=== PATIENT | male | born 1950 | race Hispanic/Latino ===

== ENCOUNTER 2016-11-10 04:26 | Emergency (ER) | payer MEDICARE ==
[2016-11-10] MEDS ORDERED: D5W IV ONE ×2 (04:30→04:32)
[2016-11-10] MEDS ORDERED: ATROPINE 0.1% (CARDIAC) ONE (04:30)
[2016-11-10] MEDS ORDERED: ADRENALIN ONE (04:30)
[2016-11-10] MEDS ORDERED: INTROPIN DRIP 800 MG/D5W 250 ML IV ONE (04:30)
[2016-11-10] MEDS ORDERED: SODIUM BICARBONATE IV ONE (04:30)
[2016-11-10] MEDS ORDERED: [UNRECOGNIZED DRUG - OTHER] IV ONE (04:32)
[2016-11-10 04:56] LABS: Urine Drugs of Abuse Note Disclamer
--- NOTE | 2016-11-10 05:03 | Emergency Department Report ---
HPI - General Time Seen by Provider: 11/10/16 04:37 - HPI HPI: Room 20 The patient is a 65-year-old male brought in by EMS with a chief complaint cardiac arrest. The patient is reportedly a resident at [facility] and had a last normal time in 03:00. EMS states staff at the skilled nursing. The patient unresponsive and initiated CPR at 03:45. EMS arrived on scene at 03 :51 and the patient in asystole. CPR was continued the patient was intubated administered 3 epinephrines and one sodium bicarbonate. EMS states they had return of spontaneous circulation for approximately 2 minutes within the patient again went into asystole prior to arrival. In the ED ACLS protocols were continued with return of spontaneous circulation for approximately 15 minutes then reentered PEA/idioventricular rhythm. This rhythm was recalcitrant to ACLS Location: Cardiovascular system Duration: [see above] Quality: Cardiac arrest Severity: Severe Modifying factors: [see above] Context: [see above] Mode of transportation: EMS ED Past Medical Hx - Past Medical History Hx Hypertension: Yes Hx CVA: Yes (left sided deficits) Hx Diabetes: Yes Hx Psychiatric Treatment: Yes (SCHIZOPHRENIC) - Surgical History Additional Surgical History: bilateral inguinal hernia repair - Family History Family history: no significant - Social History Smoking Status: Never Smoker Substance Use Type: None - Medications Home Medications: Home Medications Medication Instructions Recorded Confirmed Last Taken Type Metformin HCl [Glucophage] 1,000 mg PO BID #60 tablet 04/17/14 12/18/14 Unknown Rx hydrALAZINE [Apresoline TAB] 50 mg PO Q8HR #90 tablet 09/27/14 12/18/14 Unknown Rx OLANzapine [ZyPREXA] 15 mg PO Q24H tablet 12/05/14 12/18/14 Unknown Rx Lisinopril [Zestril TAB] 40 mg PO QDAY 12/18/14 12/18/14 Unknown History Sertraline [Zoloft] 100 mg PO QDAY 12/18/14 12/18/14 Unknown History levETIRAcetam [Keppra TAB] 500 mg PO BID 12/18/14 12/18/14 Unknown History Carvedilol [Coreg] 25 mg PO Q12HR tablet 12/21/14 Unknown Rx ED Review of Systems ROS: Stated complaint: CARDIAC ARREST Other details as noted in HPI Comment: Unobtainable due to pts medical conditions Physical Exam - Physical Exam Physical Exam: GENERAL: The patient is well-developed well-nourished male lying on stretcher unresponsive receiving chest compressions and being bagged via ET tube. [] HEENT: Normocephalic. Atraumatic. Pupils 4 mm and unreactive NECK: Trachea midline CHEST/LUNGS: Breath sounds equal bilaterally with bagging HEART/CARDIOVASCULAR: No heart sounds. ABDOMEN: Abdomen is soft SKIN: There is no diaphoresis. NEURO: GCS 3T MUSCULOSKELETAL: Abrasion to sternum ED Medical Decision Making - EKG Data -: EKG Interpreted by Me EKG shows normal: sinus rhythm Rate: normal - EKG Data When compared to previous EKG there are: changes noted Interpretation: other (new Right Bundle-branch block) - Differential Diagnosis cardiac arrest Critical care attestation.: If time is entered above; I have spent that time in minutes in the direct care of this critically ill patient, excluding procedure time. ED Disposition Clinical Impression: Cardiac arrest Disposition: Z-41 HOSPICE- MED FAC Is pt being admited?: No Does the pt Need Aspirin: No Condition: Poor Time of Disposition: 04:57 (patient )
[2016-11-10 05:28] LABS: Bacteria,Urine 1+ /HPF (Negative); Bilirubin,Urine NEG (Negative); Blood,Urine NEG (Negative); Ketones,Urine NEG (Negative); Leukocyte Esterase,Urine NEG (Negative); Mucus,Urine FEW /HPF; Nitrite,Urine NEG (Negative); Protein,Urine <15 mg/dL mg/dL (Negative); Urobilinogen,Urine < 2.0 mg/dL (<2.0)
== END 2016-11-10 09:43 ==
LOC: ED 04:26
DX: I46.9 Cardiac arrest, cause unspecified (principal); I10 Essential (primary) hypertension; E11.9 Type 2 diabetes mellitus without complications; F20.9 Schizophrenia, unspecified; Z86.73 Personal history of transient ischemic attack (TIA), and cerebral infarction without residual deficits
CPT/HCPCS: 31500; 51702; 80307; 81001; 99285; J0171; J0461; J1265